=== PATIENT | male | born 1990 | race Two or more races ===

== ENCOUNTER 2019-06-30 12:30 | Emergency (ER) | payer SELFPAY ==
[~2019-06-30] VITALS: Ht 170.2 cm; Wt 90.7 kg
[2019-06-30] MEDS ORDERED: ACETAMINOPHEN 325 MG TAB PO ONE (12:45)
[2019-06-30] MEDS ORDERED: LIDOCAINE 1% HCL (LOCAL ANESTH.) INJ 20ML MDV IJ ONE (15:00)
[2019-06-30] MEDS ORDERED: cefTRIAXone SOD 1,000 MG VL IM ONE (15:00)
[2019-06-30] MEDS ORDERED: TETANUS-DIPTH-ACEL PERTUSSIS 0.5ML SYRG IM ONE (15:00)
[2019-06-30 15:15] VITALS: BP 122/78
== END 2019-06-30 15:38 | disposition home or self-care (01) ==
LOC: ER 12:32
DX: S61.217A Laceration without foreign body of left little finger without damage to nail, initial encounter (principal); S62.617A Displaced fracture of proximal phalanx of left little finger, initial encounter for closed fracture; W26.9XXA Contact with unspecified sharp object(s), initial encounter; Y93.89 Activity, other specified; Y99.8 Other external cause status; Y92.89 Other specified places as the place of occurrence of the external cause
CPT/HCPCS: 12002; 73140; 90471; 90715; 96372; 99284; J0696; J2001